=== PATIENT | female | born 1970 | race Caucasian/White ===

== ENCOUNTER 2024-11-24 14:57 | Outpatient (CLI) | payer BC, OTHER | END 2024-11-24 14:58 | disposition home or self-care (01) | LOC: CSHDTY/OP 14:57 | PROVIDERS: ATTEND Nurse Practitioner Family | DX: E66.9 Obesity, unspecified (principal) | CPT/HCPCS: 97802 ==

== ENCOUNTER 2024-12-16 12:57 | Outpatient (CLI) | payer BC | END 2024-12-16 12:58 | disposition home or self-care (01) | LOC: CSHDTY/OP 12:57 | PROVIDERS: ATTEND Nurse Practitioner Family | DX: E66.9 Obesity, unspecified (principal) | CPT/HCPCS: 97802 ==

== ENCOUNTER 2025-10-03 09:25 | Outpatient (CLI) | payer BC | END 2025-10-03 09:26 | disposition home or self-care (01) | LOC: CSHSLEEP 09:25 | PROVIDERS: ATTEND Internal Medicine Critical Care Medicine | DX: G47.33 Obstructive sleep apnea (adult) (pediatric) (principal) | CPT/HCPCS: 95800 ==